=== PATIENT | male | born 1995 | race Two or more races ===

== ENCOUNTER 2025-01-10 10:37 | Emergency (ER) | payer OTHER ==
[~2025-01-10] VITALS: Ht 180.3 cm; Wt 100.6 kg
[2025-01-10 10:56] VITALS: BP 145/86; PULSE 78; RESP 16; TEMP 98.2; O2SAT 98
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
--- NOTE | 2025-01-10 11:31 | DVH ---
EXAM: CT HEAD WITHOUT CONTRAST HISTORY: INJURY COMPARISON: None TECHNIQUE: Noncontrast axial CT images of the head were performed. Sagittal and coronal reformatted i mages were obtained. This CT exam was performed using 1 or more of the following dose reduction techn iques: Automated exposure control, adjustment of the mA and/or kv according to patient size, or the u se of iterative reconstruction techniques. Radiation Dose: CTDI volume is 60.77 mGy. Dose-length product is 972.37 mGy*cm FINDINGS: No intracranial hemorrhage, mass, midline shift, hydrocephalus, or evidence of acute large vessel inf arct. There is mild cerebellar tonsillar ectopia without evidence of Chiari I malformation. There is a small cavum septum pellucidum. The partially-visualized paranasal sinuses are clear. The bilateral mastoid air cells and middle ear spaces are clear. There is a left high parietal scalp hematoma witho ut underlying cranial fracture. IMPRESSION: 1. No acute intracranial process. 2. Left high parietal scalp hematoma without underlying cranial fracture.
[2025-01-10] MEDS ORDERED: IBUP-1456 PO (12:14)
[2025-01-10] MEDS: ACETAMINOPHEN 325 MG TAB PO ONE (12:22)
== END 2025-01-10 12:14 | disposition home or self-care (01) ==
LOC: ER 10:37
DX: S00.03XA Contusion of scalp, initial encounter (principal); Z79.1 Long term (current) use of non-steroidal anti-inflammatories (NSAID); W22.8XXA Striking against or struck by other objects, initial encounter; Y93.89 Activity, other specified; Y92.89 Other specified places as the place of occurrence of the external cause; Y99.8 Other external cause status
CPT/HCPCS: 70450